=== PATIENT | male | born 1970 | race Caucasian/White ===

== ENCOUNTER 2019-10-12 21:36 | Emergency (ER) | payer SELFPAY ==
[~2019-10-12] VITALS: Ht 177.8 cm; Wt 70.3 kg
[2019-10-12] MEDS ORDERED: PANTOPRAZOLE 40 MG 10ML VIAL IV STA (21:44)
[2019-10-12] MEDS ORDERED: DICYCLOMINE HCL 20 MG/2 ML VIAL IM ONE (21:45)
[2019-10-12 21:56] LABS: BASOPHILS % 0.4 % (0.0-1.0); EOSINOPHILS # (AUTO) 0.4 (0.0-0.4); EOSINOPHILS % 4.4 % (0.0-6.0); HEMATOCRIT 41.1 % (38.2-49.6); HEMOGLOBIN 13.6 g/dL (14.0-18.0); LYMPHOCYTES % 35.1 % (18.0-39.1); MEAN CORPUSCULAR HEMOGLOBIN 30.6 pg (28-32); MEAN CORPUSCULAR HGB CONC 33.1 g/dL (31-35); MEAN CORPUSCULAR VOLUME 92.4 fL (81-99); MONOCYTES # (AUTO) 0.6 (0.2-0.8); MONOCYTES % 6.5 % (4.4-11.3); NEUTROPHILS # (AUTO) 4.6 (2.1-6.9); NEUTROPHILS % 53.2 % (38.7-80.0); PLATELET COUNT 296 x10e3/uL (140-360); RED BLOOD COUNT 4.45 x10e6/uL (4.3-5.7); RED CELL DISTRIBUTION WIDTH 12.3 % (11.7-14.4)
--- NOTE | 2019-10-12 22:12 | Emergency Department Note ---
History of Present Illnes History of Present Illness Chief Complaint: Abdominal Complaints History of Present Illness This is a 48 year old male PRESENTS TO THE ER C/O INTERMITTENT LUQ ABD PAIN RADIATING TO RUQ AND EPIGASTRIC REGION WITH SOB ONSET X1 WEEK; PT DENIES N/V/D, FEVER/CHILLS. Historian: Patient Arrival Mode: Car Onset (how long ago): day(s) (7) Location: UPPER ABD Quality: PAIN Radiation: Reports other (RADIATES TO CHEST) Severity: moderate Onset quality: sudden Duration (how long): day(s) (7) Timing of current episode: intermittent Progression: unchanged Chronicity: new Context: Denies recent illness, Denies recent surgery, Denies recent travel, Denies trauma/injury Relieving factors: none Exacerbating factors: none Associated symptoms: Reports shortness of breath Past Medical/Family History Physician Review I have reviewed the patient's past medical and family history. Any updates have been documented here. Past Medical History Recent Fever: No Clinical Suspicion of Infectio: No New/Unexplained Change in Ment: No Other Medical History: PANCREATITIS Past Surgical History: None Social History Smoking Cessation: Current every day smoker Alcohol Use: Occasional Any Illegal Drug Use: No Physically hurt or threatened: No Review of Systems Review of Systems Constitutional: Reports no symptoms EENTM: Reports no symptoms Cardiovascular: Reports no symptoms Respiratory: Reports no symptoms Gastrointestinal: Reports no symptoms, Reports as per HPI Genitourinary: Reports no symptoms Musculoskeletal: Reports no symptoms Integumentary: Reports no symptoms Neurological: Reports no symptoms Psychological: Reports no symptoms Endocrine: Reports no symptoms Hematological/Lymphatic: Reports no symptoms Physical Exam Related Data Allergies: Coded Allergies: No Known Allergies (Unverified , 10/12/19) Triage Vital Signs Vital Signs Date Time Temp Pulse Resp B/P (MAP) Pulse Ox O2 Delivery O2 Flow Rate FiO2 10/12/19 21:36 98.7 82 20 129/97 100 Room Air Vital signs reviewed: Yes Physical Exam CONSTITUTIONAL Constitutional: Present well-developed, Present well-nourished; Absent distressed HENT HENT: Present normocephalic, Present atraumatic, Present oropharynx clear/moist, Present nose normal HENT L/R: Present left ext ear normal, Present right ext ear normal EYES Eyes: Reports PERRL, Reports conjunctivae normal NECK Neck: Present ROM normal PULMONARY Pulmonary: Present effort normal, Present breath sounds normal CARDIOVASCULAR Cardiovascular: Present regular rhythm, Present heart sounds normal, Present capillary refill normal, Present normal rate GASTROINTESTINAL Abdominal: Present soft, Present bowel sounds normal, Present tender (RUQ, EPIGASTRIC AND LUQ); Absent left CVA tenderness, Absent right CVA tenderness GENITOURINARY Genitourinary: Present exam deferred SKIN Skin: Present warm, Present dry MUSCULOSKELETAL Musculoskeletal: Present ROM normal NEUROLOGICAL Neurological: Present alert, Present oriented x 3, Present no gross motor or sensory deficits PSYCHOLOGICAL Psychological: Present mood/affect normal, Present judgement normal Results Laboratory Result Diagram: 10/12/19 2149 Laboratory Laboratory Tests Test 10/12/19 21:49 10/12/19 21:48 White Blood Count 8.55 x10e3/uL (4.8-10.8) Red Blood Count 4.45 x10e6/uL (4.3-5.7) Hemoglobin 13.6 g/dL (14.0-18.0) Hematocrit 41.1 % (38.2-49.6) Mean Corpuscular Volume 92.4 fL (81-99) Mean Corpuscular Hemoglobin 30.6 pg (28-32) Mean Corpuscular Hemoglobin Concent 33.1 g/dL (31-35) Red Cell Distribution Width 12.3 % (11.7-14.4) Platelet Count 296 x10e3/uL (140-360) Neutrophils (%) (Auto) 53.2 % (38.7-80.0) Lymphocytes (%) (Auto) 35.1 % (18.0-39.1) Monocytes (%) (Auto) 6.5 % (4.4-11.3) Eosinophils (%) (Auto) 4.4 % (0.0-6.0) Basophils (%) (Auto) 0.4 % (0.0-1.0) Neutrophils # (Auto) 4.6 (2.1-6.9) Lymphocytes # (Auto) 3.0 (1.0-3.2) Monocytes # (Auto) 0.6 (0.2-0.8) Eosinophils # (Auto) 0.4 (0.0-0.4) Basophils # (Auto) 0.0 (0.0-0.1) Absolute Immature Granulocyte (auto 0.03 x10e3/uL (0-0.1) Sodium Level 142 mmol/L (136-145) Potassium Level 3.9 mmol/L (3.5-5.1) Chloride Level 105 mmol/L (98-107) Carbon Dioxide Level 27 mmol/L (22-29) Anion Gap 13.9 mmol/L (8-16) Blood Urea Nitrogen 10 mg/dL (7-26) Creatinine 1.02 mg/dL (0.72-1.25) Estimat Glomerular Filtration Rate > 60 ML/MIN (60-) BUN/Creatinine Ratio 10 (6-25) Glucose Level 103 mg/dL (74-118) Calcium Level 8.8 mg/dL (8.4-10.2) Total Bilirubin 0.2 mg/dL (0.2-1.2) Aspartate Amino Transf (AST/SGOT) 19 IU/L (5-34) Alanine Aminotransferase (ALT/SGPT) 20 IU/L (0-55) Alkaline Phosphatase 91 IU/L (40-150) Creatine Kinase 175 IU/L (30-200) Creatine Kinase MB 1.50 ng/mL (0-5.0) Troponin I < 0.001 ng/mL (0-0.300) Total Protein 7.0 g/dL (6.5-8.1) Albumin 3.6 g/dL (3.5-5.0) Globulin 3.4 g/dL (2.3-3.5) Albumin/Globulin Ratio 1.1 (0.8-2.0) Amylase Level 65 U/L (25-125) Lipase 53 U/L (8-78) Urine Color Yellow (YELLOW) Urine Clarity Clear (CLEAR) Urine pH 6 (5 - 7) Urine Specific [place] 1.030 (1.010-1.025) Urine Protein Negative (NEGATIVE) Urine Glucose (UA) Negative (NEGATIVE) Urine Ketones Negative (NEGATIVE) Urine Blood Negative (NEGATIVE) Urine Nitrite Negative (NEGATIVE) Urine Bilirubin Negative (NEGATIVE) Urine Urobilinogen 0.2 mg/dL (0.2 - 1) Urine Leukocyte Esterase Negative (NEGATIVE) Urine RBC 0-5 /HPF (0-5) Urine WBC 0-5 /HPF (0-5) Urine Epithelial Cells Rare /LPF (NONE) Urine Bacteria Few /HPF (NONE) Urine Mucus Rare (RARE) Laboratory Tests Test 10/12/19 21:49 White Blood Count 8.55 x10e3/uL (4.8-10.8) Red Blood Count 4.45 x10e6/uL (4.3-5.7) Hemoglobin 13.6 g/dL (14.0-18.0) Hematocrit 41.1 % (38.2-49.6) Mean Corpuscular Volume 92.4 fL (81-99) Mean Corpuscular Hemoglobin 30.6 pg (28-32) Mean Corpuscular Hemoglobin Concent 33.1 g/dL (31-35) Red Cell Distribution Width 12.3 % (11.7-14.4) Platelet Count 296 x10e3/uL (140-360) Neutrophils (%) (Auto) 53.2 % (38.7-80.0) Lymphocytes (%) (Auto) 35.1 % (18.0-39.1) Monocytes (%) (Auto) 6.5 % (4.4-11.3) Eosinophils (%) (Auto) 4.4 % (0.0-6.0) Basophils (%) (Auto) 0.4 % (0.0-1.0) Neutrophils # (Auto) 4.6 (2.1-6.9) Lymphocytes # (Auto) 3.0 (1.0-3.2) Monocytes # (Auto) 0.6 (0.2-0.8) Eosinophils # (Auto) 0.4 (0.0-0.4) Basophils # (Auto) 0.0 (0.0-0.1) Absolute Immature Granulocyte (auto 0.03 x10e3/uL (0-0.1) Lab results reviewed: Yes Imaging Imaging results reviewed: Yes Impressions Procedure: [id number] DX/CHEST SINGLE (PORTABLE) Exam Date: 10/12/19 Exam Time: 2225 REPORT STATUS: Signed EXAMINATION: CHEST SINGLE (PORTABLE) INDICATION:^CHEST PAIN COMPARISON: None FINDINGS: The heart size and pulmonary vasculature are normal. There are mild strandy bibasilar opacities. No pleural effusion. No pneumothorax. IMPRESSION: Mild strandy bibasilar opacities are favored to represent atelectasis, although viral pneumonitis is also considered. Signed by: Dillon Coronado MD on 10/12/2019 11:21 PM Dictated By: DILLON CORONADO MD 20 Transcribed By: ILIR on 10/12/192320 Procedure: [id number] US/US GALLBLADDER Exam Date: 10/12/19 Exam Time: 2241 REPORT STATUS: Signed EXAM: Right Upper Quadrant Ultrasound INDICATION: RUQ PAIN COMPARISON: None. TECHNIQUE: Transverse and longitudinal images of the right upper abdomen were obtained. FINDINGS: Liver: Size: 16.9 cm in the right midclavicular line, normal Appearance: Normal echogenicity, smooth contour Mass: No focal masses Gallbladder: Stones/Sludge: None Wall: 0.4 cm, contracted gallbladder Appearance: No pericholecystic fluid or hydrops. Sonographic Kim's Sign: Negative Bile Ducts: Intrahepatic Ducts: No dilatation Extrahepatic Ducts: Common bile duct measures 0.4 cm, no dilatation Pancreas: Visualized portions are normal. Right Kidney: Size: 10.3 cm Echogenicity: Normal Parenchymal thickness: Normal Collecting system: No hydronephrosis Stones: None Cyst/Mass: None Vessels: Aorta: Visualized portions are normal Inferior Vena Cava: Visualized portions are normal Main portal vein: Normal size and flow direction. Free Fluid: No ascites or pleural effusion IMPRESSION: Normal right upper quadrant ultrasound. No evidence of acute cholecystitis. Signed by: Dillon Coronado MD on 10/13/2019 12:06 AM Dictated By: DILLON CORONADO MD Transcribed By: ILIR on 10/13/195 COPY TO: LON TRETN MD~ Procedures 12 Lead ECG Interpretation ECG Interpretation : ECG: ECG 1 Chair Springer: Interpreted by ED physician Date: Oct 12, 2019 Time: 21:41 Rhythm: sinus rhythm Rate: normal BPM: 75 QRS axis: normal ST segments normal: Yes Q waves: V1, V2 Clinical Impression: abnormal ECG Assessment & Plan Medical Decision Making MDM PT WITH UPPER ABD PAIN RADIATING INTO CHEST INTERMITTENTLY FOR 1 WEEK, TENDER TO UPPER ABD ON EXAM CBC, CMP, AMYLASE, LIPASE, CARDIAC ENZYMES, EKG, CXR, GALLBLADDER U/S ORDERED TO EVAL FOR MYOCARDIAL INFARCTION, PANCREATITIS, ELEVATED LFT'S, PNEUMONIA, ELECTROLYTE ABNORMALITY,GALLSTONES, PROTONIX 40 MG IV ORDERED BENTYL 20 MG IM ORDERED pt discharged with protonix 40 mg po qd #15, bentyl 20 mg 1 po q 6 hours prn abd pain pt instructed on bland diet referred to dr rui colbert (gi) Reassessment Reassessment time: 00:19 Reassessment symptoms improved after protonix and benty Assessment & Plan Final Impression: (1) Gastritis Depart Disposition: HOME, SELF-CARE Last Vital Signs Date Time Temp Pulse Resp B/P (MAP) Pulse Ox O2 Delivery O2 Flow Rate FiO2 10/12/19 21:36 98.7 82 20 129/97 100 Room Air Medications in the ED Pantoprazole Sodium 40 mg NOW STAT IV ; Start 10/12/19 at 21:44; Stop 10/12/19 at 21:45; Status UNV Dicyclomine HCl 20 mg ONCE ONCE IM ; Start 10/12/19 at 21:45; Stop 10/12/19 at 21:46; Status DC LON TRENT MD Oct 12, 2019 22:11
[2019-10-12 22:17] LABS: ALANINE AMINOTRANSFERASE 20 IU/L (0-55); ALBUMIN 3.6 g/dL (3.5-5.0); ALBUMIN/GLOBULIN RATIO 1.1 (0.8-2.0); ALKALINE PHOSPHATASE 91 IU/L (40-150); AMYLASE 65 U/L (25-125); ANION GAP 13.9 mmol/L (8-16); BLOOD UREA NITROGEN 10 mg/dL (7-26); BUN/CREATININE RATIO 10 (6-25); CALCIUM 8.8 mg/dL (8.4-10.2); CARBON DIOXIDE 27 mmol/L (22-29); CHLORIDE 105 mmol/L (98-107); CREATINE KINASE 175 IU/L (30-200); CREATININE, SERUM 1.02 mg/dL (0.72-1.25); EST GLOMERULAR FILTRATION RATE > 60 ML/MIN (60-); GLUCOSE 103 mg/dL (74-118); LIPASE 53 U/L (8-78); POTASSIUM 3.9 mmol/L (3.5-5.1); SODIUM 142 mmol/L (136-145)
[2019-10-12 22:36] LABS: BILIRUBIN,URINE NEGATIVE (NEGATIVE); CLARITY,URINE CLEAR (CLEAR); COLOR,URINE YELLOW (YELLOW); KETONES,URINE NEGATIVE (NEGATIVE); LEUKOCYTE ESTERASE ,URINE NEGATIVE (NEGATIVE); NITRITE,URINE NEGATIVE (NEGATIVE); PROTEIN,URINE DIPSTICK NEGATIVE (NEGATIVE); URINE UROBILINOGEN 0.2 mg/dL (0.2 - 1)
[2019-10-12 22:41] LABS: BACTERIA,URINE FEW /HPF; EPITHELIAL CELLS,URINE RARE /LPF; MUCUS,URINE RARE (RARE); RBC,URINE 0-5 /HPF (0-5); WBC,URINE (MAN) 0-5 /HPF (0-5)
--- NOTE | 2019-10-12 23:24 | Diagnostic Imaging Report ---
EXAMINATION: CHEST SINGLE (PORTABLE) INDICATION:^CHEST PAIN COMPARISON: None FINDINGS: The heart size and pulmonary vasculature are normal. There are mild strandy bibasilar opacities. No pleural effusion. No pneumothorax. IMPRESSION: Mild strandy bibasilar opacities are favored to represent atelectasis, although viral pneumonitis is also considered. Signed by: Venkat Colmenares MD on 10/12/2019 11:21 PM
--- NOTE | 2019-10-13 00:10 | Diagnostic Imaging Report ---
EXAM: Right Upper Quadrant Ultrasound INDICATION: RUQ PAIN COMPARISON: None. TECHNIQUE: Transverse and longitudinal images of the right upper abdomen were obtained. FINDINGS: Liver: Size: 16.9 cm in the right midclavicular line, normal Appearance: Normal echogenicity, smooth contour Mass: No focal masses Gallbladder: Stones/Sludge: None Wall: 0.4 cm, contracted gallbladder Appearance: No pericholecystic fluid or hydrops. Sonographic Kim's Sign: Negative Bile Ducts: Intrahepatic Ducts: No dilatation Extrahepatic Ducts: Common bile duct measures 0.4 cm, no dilatation Pancreas: Visualized portions are normal. Right Kidney: Size: 10.3 cm Echogenicity: Normal Parenchymal thickness: Normal Collecting system: No hydronephrosis Stones: None Cyst/Mass: None Vessels: Aorta: Visualized portions are normal Inferior Vena Cava: Visualized portions are normal Main portal vein: Normal size and flow direction. Free Fluid: No ascites or pleural effusion IMPRESSION: Normal right upper quadrant ultrasound. No evidence of acute cholecystitis. Signed by: Venkat Colmenares MD on 10/13/2019 12:06 AM
== END 2019-10-13 01:14 | disposition home or self-care (01) ==
LOC: ER 22:00
DX: R10.12 Left upper quadrant pain (principal); K29.70 Gastritis, unspecified, without bleeding; K86.9 Disease of pancreas, unspecified
CPT/HCPCS: 36415; 71045; 76705; 80053; 81001; 82150; 82550; 82553; 83690; 84484; 85025; 93005; 99284; C9113; J0500

== ENCOUNTER 2019-12-03 17:52 | Emergency (ER) | payer SELFPAY ==
[~2019-12-03] VITALS: Ht 177.8 cm; Wt 70.3 kg
[2019-12-03 18:34] LABS: BASOPHILS % 0.5 % (0.0-1.0); EOSINOPHILS # (AUTO) 0.2 (0.0-0.4); EOSINOPHILS % 2.5 % (0.0-6.0); HEMATOCRIT 36.9 % (38.2-49.6); HEMOGLOBIN 12.5 g/dL (14.0-18.0); LYMPHOCYTES # (AUTO) 2.3 (1.0-3.2); MEAN CORPUSCULAR HEMOGLOBIN 30.1 pg (28-32); MEAN CORPUSCULAR HGB CONC 33.9 g/dL (31-35); MEAN CORPUSCULAR VOLUME 88.9 fL (81-99); MONOCYTES # (AUTO) 0.6 (0.2-0.8); MONOCYTES % 7.9 % (4.4-11.3); NEUTROPHILS # (AUTO) 4.3 (2.1-6.9); NEUTROPHILS % 57.8 % (38.7-80.0); PLATELET COUNT 318 x10e3/uL (140-360); RED BLOOD COUNT 4.15 x10e6/uL (4.3-5.7); RED CELL DISTRIBUTION WIDTH 11.9 % (11.7-14.4)
[2019-12-03 18:46] LABS: ALANINE AMINOTRANSFERASE 16 IU/L (0-55); ALBUMIN/GLOBULIN RATIO 1.6 (0.8-2.0); ALKALINE PHOSPHATASE 83 IU/L (40-150); BLOOD UREA NITROGEN 26 mg/dL (7-26); BUN/CREATININE RATIO 24 (6-25); CALCIUM 8.4 mg/dL (8.4-10.2); CARBON DIOXIDE 25 mmol/L (22-29); CHLORIDE 105 mmol/L (98-107); CREATINE KINASE 340 IU/L (30-200); CREATININE, SERUM 1.07 mg/dL (0.72-1.25); EST GLOMERULAR FILTRATION RATE > 60 ML/MIN (60-); GLUCOSE 107 mg/dL (74-118); SODIUM 139 mmol/L (136-145)
[2019-12-03 18:47] LABS: AMYLASE 37 U/L (25-125); LIPASE 33 U/L (8-78)
[2019-12-03] MEDS ORDERED: PANTOPRAZOLE 40 MG 10ML VIAL IV STA (18:56)
--- NOTE | 2019-12-03 18:56 | Emergency Department Note ---
History of Present Illnes History of Present Illness Chief Complaint: Chest Pain History of Present Illness This is a 48 year old male with c/o chest pain radiating to left arm last night, today now has upper abd pain radiating to lower abd, denies n/v/d. no chest pain today, Historian: Patient Arrival Mode: [facility] Onset (how long ago): day(s) (1) Location: chest, abd Quality: pain Radiation: Reports abdomen Severity: mild Onset quality: sudden Duration (how long): day(s) Progression: partially resolved Chronicity: new Context: Denies recent illness, Denies recent surgery, Denies trauma/injury Relieving factors: none Exacerbating factors: none Associated symptoms: Reports denies other symptoms Past Medical/Family History Physician Review I have reviewed the patient's past medical and family history. Any updates have been documented here. Past Medical History Recent Fever: No Clinical Suspicion of Infectio: No New/Unexplained Change in Ment: No Other Medical History: PANCREATITIS Past Surgical History: None Social History Smoking Cessation: Never Smoker Counseling Performed: No Alcohol Use: None Any Illegal Drug Use: No Other Any Pre-Existing Lines (PICC,: No Review of Systems Review of Systems Constitutional: Reports no symptoms EENTM: Reports no symptoms Cardiovascular: Reports as per HPI Respiratory: Reports no symptoms Genitourinary: Reports no symptoms Musculoskeletal: Reports no symptoms Integumentary: Reports no symptoms Neurological: Reports no symptoms Psychological: Reports no symptoms Endocrine: Reports no symptoms Hematological/Lymphatic: Reports no symptoms Physical Exam Related Data Allergies: Coded Allergies: No Known Allergies (Unverified , 10/12/19) Triage Vital Signs Vital Signs Date Time Temp Pulse Resp B/P (MAP) Pulse Ox O2 Delivery O2 Flow Rate FiO2 12/03/19 18:13 98.2 78 17 115/78 100 Room Air Vital signs reviewed: Yes Physical Exam CONSTITUTIONAL Constitutional: Present well-developed, Present well-nourished HENT HENT: Present normocephalic, Present atraumatic, Present oropharynx clear/moist, Present nose normal HENT L/R: Present left ext ear normal, Present right ext ear normal EYES Eyes: Reports PERRL, Reports conjunctivae normal NECK Neck: Present ROM normal PULMONARY Pulmonary: Present effort normal, Present breath sounds normal CARDIOVASCULAR Cardiovascular: Present regular rhythm, Present heart sounds normal, Present capillary refill normal, Present normal rate GASTROINTESTINAL Abdominal: Present soft, Present bowel sounds normal, Present tender (mild epigastric and lower abd ) GENITOURINARY Genitourinary: Present exam deferred SKIN Skin: Present warm, Present dry MUSCULOSKELETAL Musculoskeletal: Present ROM normal NEUROLOGICAL Neurological: Present alert, Present oriented x 3, Present no gross motor or sensory deficits PSYCHOLOGICAL Psychological: Present mood/affect normal, Present judgement normal Results Laboratory Result Diagram: 12/03/19 1819 Laboratory Laboratory Tests Test 12/03/19 20:32 12/03/19 18:19 Urine Color Yellow (YELLOW) Urine Clarity Sl cloudy (CLEAR) Urine pH 7 (5 - 7) Urine Specific [place] 1.020 (1.010-1.025) Urine Protein Negative (NEGATIVE) Urine Glucose (UA) Negative (NEGATIVE) Urine Ketones Negative (NEGATIVE) Urine Blood Negative (NEGATIVE) Urine Nitrite Negative (NEGATIVE) Urine Bilirubin Negative (NEGATIVE) Urine Urobilinogen 0.2 mg/dL (0.2 - 1) Urine Leukocyte Esterase Negative (NEGATIVE) Urine RBC None /HPF (0-5) Urine WBC None /HPF (0-5) Urine Epithelial Cells None /LPF (NONE) Urine Bacteria Few /HPF (NONE) Urine Opiates Screen Negative (NEGATIVE) Urine Methadone Screen Negative (NEGATIVE) Urine Barbiturates Screen Negative (NEGATIVE) Urine Phencyclidine Screen Negative (NEGATIVE) Urine Amphetamines Screen Positive (NEGATIVE) Urine Methamphetamines Screen Positive (NEGATIVE) Urine Benzodiazepines Screen Negative (NEGATIVE) Urine Cocaine Screen Negative (NEGATIVE) Urine Cannabinoids Screen Positive (NEGATIVE) White Blood Count 7.48 x10e3/uL (4.8-10.8) Red Blood Count 4.15 x10e6/uL (4.3-5.7) Hemoglobin 12.5 g/dL (14.0-18.0) Hematocrit 36.9 % (38.2-49.6) Mean Corpuscular Volume 88.9 fL (81-99) Mean Corpuscular Hemoglobin 30.1 pg (28-32) Mean Corpuscular Hemoglobin Concent 33.9 g/dL (31-35) Red Cell Distribution Width 11.9 % (11.7-14.4) Platelet Count 318 x10e3/uL (140-360) Neutrophils (%) (Auto) 57.8 % (38.7-80.0) Lymphocytes (%) (Auto) 31.0 % (18.0-39.1) Monocytes (%) (Auto) 7.9 % (4.4-11.3) Eosinophils (%) (Auto) 2.5 % (0.0-6.0) Basophils (%) (Auto) 0.5 % (0.0-1.0) Neutrophils # (Auto) 4.3 (2.1-6.9) Lymphocytes # (Auto) 2.3 (1.0-3.2) Monocytes # (Auto) 0.6 (0.2-0.8) Eosinophils # (Auto) 0.2 (0.0-0.4) Basophils # (Auto) 0.0 (0.0-0.1) Absolute Immature Granulocyte (auto 0.02 x10e3/uL (0-0.1) Sodium Level 139 mmol/L (136-145) Potassium Level 4.0 mmol/L (3.5-5.1) Chloride Level 105 mmol/L (98-107) Carbon Dioxide Level 25 mmol/L (22-29) Anion Gap 13.0 mmol/L (8-16) Blood Urea Nitrogen 26 mg/dL (7-26) Creatinine 1.07 mg/dL (0.72-1.25) Estimat Glomerular Filtration Rate > 60 ML/MIN (60-) BUN/Creatinine Ratio 24 (6-25) Glucose Level 107 mg/dL (74-118) Calcium Level 8.4 mg/dL (8.4-10.2) Total Bilirubin 0.3 mg/dL (0.2-1.2) Aspartate Amino Transf (AST/SGOT) 18 IU/L (5-34) Alanine Aminotransferase (ALT/SGPT) 16 IU/L (0-55) Alkaline Phosphatase 83 IU/L (40-150) Creatine Kinase 340 IU/L (30-200) Creatine Kinase MB 2.80 ng/mL (0-5.0) Troponin I < 0.001 ng/mL (0-0.300) Total Protein 6.5 g/dL (6.5-8.1) Albumin 4.0 g/dL (3.5-5.0) Globulin 2.5 g/dL (2.3-3.5) Albumin/Globulin Ratio 1.6 (0.8-2.0) Amylase Level 37 U/L (25-125) Lipase 33 U/L (8-78) Laboratory Tests Test 12/03/19 18:19 White Blood Count 7.48 x10e3/uL (4.8-10.8) Red Blood Count 4.15 x10e6/uL (4.3-5.7) Hemoglobin 12.5 g/dL (14.0-18.0) Hematocrit 36.9 % (38.2-49.6) Mean Corpuscular Volume 88.9 fL (81-99) Mean Corpuscular Hemoglobin 30.1 pg (28-32) Mean Corpuscular Hemoglobin Concent 33.9 g/dL (31-35) Red Cell Distribution Width 11.9 % (11.7-14.4) Platelet Count 318 x10e3/uL (140-360) Neutrophils (%) (Auto) 57.8 % (38.7-80.0) Lymphocytes (%) (Auto) 31.0 % (18.0-39.1) Monocytes (%) (Auto) 7.9 % (4.4-11.3) Eosinophils (%) (Auto) 2.5 % (0.0-6.0) Basophils (%) (Auto) 0.5 % (0.0-1.0) Neutrophils # (Auto) 4.3 (2.1-6.9) Lymphocytes # (Auto) 2.3 (1.0-3.2) Monocytes # (Auto) 0.6 (0.2-0.8) Eosinophils # (Auto) 0.2 (0.0-0.4) Basophils # (Auto) 0.0 (0.0-0.1) Absolute Immature Granulocyte (auto 0.02 x10e3/uL (0-0.1) Lab results reviewed: Yes Imaging Imaging results reviewed: Yes Impressions Procedure: [id number] CT/CT ABDOMEN/PELVIS W Exam Date: 12/03/19 Exam Time: 1904 REPORT STATUS: Signed EXAMINATION: CT of the abdomen and pelvis with contrast. TECHNIQUE: Spiral CT images of the abdomen and pelvis were performed from the lung bases to the lesser trochanters after the intravenous administration of 100 cc of Isovue 370 and the oral administration of water. Coronal and sagittal reformatted images were obtained. COMPARISON: Gallbladder ultrasound 10/12/2019 CLINICAL HISTORY:Lower Abdominal pain, epigastric pain, chest pain radiating to epigastric area DISCUSSION: ABDOMEN/PELVIS: LOWER THORAX:Minimal bilateral lower lobe dependent atelectasis. HEPATOBILIARY: No focal hepatic lesions. No intra or extrahepatic biliary ductal dilation. GALLBLADDER: No radio-opaque stones or sludge. No wall thickening. SPLEEN: No splenomegaly. PANCREAS: No focal masses or ductal dilatation. No peripancreatic inflammatory changes, free fluid or fluid collections. ADRENALS: No adrenal nodules. KIDNEYS/URETERS: No hydronephrosis, stones, or solid mass lesions. PELVIC ORGANS/BLADDER: Bladder is unremarkable. Prostate is unremarkable. PERITONEUM/RETROPERITONEUM: No free air or fluid. LYMPH NODES: No intra-abdominal, retroperitoneal, pelvic or inguinal lymphadenopathy. VESSELS: The celiac trunk,superior and inferior mesenteric and bilateral renal arteries are patent The portal, superior mesenteric and splenic veins are patent. Atherosclerotic calcification of the abdominal aorta and proximal iliac vessels. GI TRACT: Mild eccentric wall thickening in the medial stomach fundus (for example series 2, image 14), without focal lesion. Rest of the stomach is unremarkable. No bowel dilation or evidence of obstruction. Intraluminal hyperdense material in the distal descending and sigmoid colon may represent ingestion of bismuth containing antacids, as the patient did not receive any oral contrast. Appendix is identified and normal in caliber. No pericolonic inflammatory changes. BONES AND SOFT TISSUE: No aggressive lytic or suspicious focal sclerotic lesions. No soft tissue abnormalities. IMPRESSION: 1. Mild eccentric wall thickening in the medial aspect of the stomach fundus, which may represent gastritis in the appropriate clinical setting. Recommend direct visualization with endoscopy for further evaluation. 2. Bowel is otherwise unremarkable. Appendix is normal. No peripancreatic inflammatory changes, free fluid or fluid collections. Signed by: Dr. Chayito Han M.D. on 12/03/2019 7:48 PM Dictated By: CHAYITO HAN MD 47 Transcribed By: ILIR on 12/03/191947 COPY TO: LON TRENT MD~ Procedure: [id number] DX/CHEST SINGLE (PORTABLE) Exam Date: 12/03/19 Exam Time: 1909 REPORT STATUS: Signed Examination: Single AP view of the chest. COMPARISON: AP chest 10/12/2019 INDICATION: Chest pain, anxiety IMPRESSION: 1. Lines and Tubes: None 2. Lungs are grossly clear. No consolidation or effusion. 3. Cardiomediastinal silhouette is normal. Pulmonary vasculature is normal. 4. No acute bony abnormalities. Signed by: Dr. Chayito Han M.D. on 12/03/2019 7:41 PM Dictated By: CHAYITO HAN MD 40 Transcribed By: ILIR on 12/03/191940 COPY TO: LON TRENT MD~ Procedures 12 Lead ECG Interpretation ECG Interpretation : ECG: ECG 1 Branch Mechanic: Interpreted by ED physician Date: Dec 03, 2019 Time: 18:24 Rhythm: sinus rhythm Rate: normal BPM: 74 QRS axis: normal ST segments normal: Yes T waves normal: Yes Q waves: V2 Additional Comments short pr interval Assessment & Plan Medical Decision Making MDM pt with chest pain last night and abd pain today cbc, cmp, ekg, cardiac enzymes, amylase, lipase, ct abd/pelvis, cxr, ua ordered to eval for myocardial infarction, pancreatitis, elevated lft's. gallstones, colitis, appendicitis, uti, diverticulitis protonix 40 mg iv ordered Assessment & Plan Final Impression: (1) Gastritis Depart Disposition: HOME, SELF-CARE Last Vital Signs Date Time Temp Pulse Resp B/P (MAP) Pulse Ox O2 Delivery O2 Flow Rate FiO2 12/03/19 18:38 68 18 125/85 100 Room Air 12/03/19 18:13 98.2 LON TRENT MD Dec 03, 2019 18:56
[2019-12-03] MEDS ORDERED: SODIUM CHLORIDE 0.9% 50ML 50 ML ONE (19:04)
[2019-12-03] MEDS ORDERED: IOPAMIDOL 370 MG/ML 200 ML INFUS..BTL INJ ONE (19:04)
--- NOTE | 2019-12-03 19:44 | Diagnostic Imaging Report ---
Examination: Single AP view of the chest. COMPARISON: AP chest 10/12/2019 INDICATION: Chest pain, anxiety IMPRESSION: 1. Lines and Tubes: None 2. Lungs are grossly clear. No consolidation or effusion. 3. Cardiomediastinal silhouette is normal. Pulmonary vasculature is normal. 4. No acute bony abnormalities. Signed by: Dr. Angel Luis Sullivan M.D. on 12/03/2019 7:41 PM
--- NOTE | 2019-12-03 19:52 | Diagnostic Imaging Report ---
EXAMINATION: CT of the abdomen and pelvis with contrast. TECHNIQUE: Spiral CT images of the abdomen and pelvis were performed from the lung bases to the lesser trochanters after the intravenous administration of 100 cc of Isovue 370 and the oral administration of water. Coronal and sagittal reformatted images were obtained. COMPARISON: Gallbladder ultrasound 10/12/2019 CLINICAL HISTORY:Lower Abdominal pain, epigastric pain, chest pain radiating to epigastric area DISCUSSION: ABDOMEN/PELVIS: LOWER THORAX:Minimal bilateral lower lobe dependent atelectasis. HEPATOBILIARY: No focal hepatic lesions. No intra or extrahepatic biliary ductal dilation. GALLBLADDER: No radio-opaque stones or sludge. No wall thickening. SPLEEN: No splenomegaly. PANCREAS: No focal masses or ductal dilatation. No peripancreatic inflammatory changes, free fluid or fluid collections. ADRENALS: No adrenal nodules. KIDNEYS/URETERS: No hydronephrosis, stones, or solid mass lesions. PELVIC ORGANS/BLADDER: Bladder is unremarkable. Prostate is unremarkable. PERITONEUM/RETROPERITONEUM: No free air or fluid. LYMPH NODES: No intra-abdominal, retroperitoneal, pelvic or inguinal lymphadenopathy. VESSELS: The celiac trunk,superior and inferior mesenteric and bilateral renal arteries are patent The portal, superior mesenteric and splenic veins are patent. Atherosclerotic calcification of the abdominal aorta and proximal iliac vessels. GI TRACT: Mild eccentric wall thickening in the medial stomach fundus (for example series 2, image 14), without focal lesion. Rest of the stomach is unremarkable. No bowel dilation or evidence of obstruction. Intraluminal hyperdense material in the distal descending and sigmoid colon may represent ingestion of bismuth containing antacids, as the patient did not receive any oral contrast. Appendix is identified and normal in caliber. No pericolonic inflammatory changes. BONES AND SOFT TISSUE: No aggressive lytic or suspicious focal sclerotic lesions. No soft tissue abnormalities. IMPRESSION: 1. Mild eccentric wall thickening in the medial aspect of the stomach fundus, which may represent gastritis in the appropriate clinical setting. Recommend direct visualization with endoscopy for further evaluation. 2. Bowel is otherwise unremarkable. Appendix is normal. No peripancreatic inflammatory changes, free fluid or fluid collections. Signed by: Dr. Angel Luis Sullivan M.D. on 12/03/2019 7:48 PM
[2019-12-03 20:41] LABS: BILIRUBIN,URINE NEGATIVE (NEGATIVE); CLARITY,URINE SL CLOUDY (CLEAR); COLOR,URINE YELLOW (YELLOW); KETONES,URINE NEGATIVE (NEGATIVE); LEUKOCYTE ESTERASE ,URINE NEGATIVE (NEGATIVE); NITRITE,URINE NEGATIVE (NEGATIVE); PROTEIN,URINE DIPSTICK NEGATIVE (NEGATIVE); URINE UROBILINOGEN 0.2 mg/dL (0.2 - 1)
[2019-12-03 20:44] LABS: AMPHETAMINES SCREEN,URINE POSITIVE (NEGATIVE); PHENCYCLIDINE SCREEN,URINE NEGATIVE (NEGATIVE)
[2019-12-03 20:45] LABS: BENZODIAZEPINES SCREEN,URINE NEGATIVE (NEGATIVE)
[2019-12-03 20:54] LABS: BACTERIA,URINE FEW /HPF
[2019-12-03 21:06] VITALS: BP 122/80
== END 2019-12-03 21:20 | disposition home or self-care (01) ==
LOC: ER 18:30
DX: K29.70 Gastritis, unspecified, without bleeding (principal); R07.89 Other chest pain; R10.13 Epigastric pain
CPT/HCPCS: 36415; 71045; 74177; 80053; 80307; 81001; 82150; 82550; 82553; 83690; 84484; 85025; 93005; 99284; C9113; Q9967